=== PATIENT | male | born 1945 | race Caucasian/White ===

== ENCOUNTER → 2020-06-17 12:12 | Outpatient (BNVA) | payer BC, MEDICARE, SELFPAY | PROVIDERS: Family Provider Family Medicine; PCP Internal Medicine; Visit Provider Internal Medicine Cardiovascular Disease | DX: I48.0 Paroxysmal atrial fibrillation (principal); Z79.01 Long term (current) use of anticoagulants; N18.9 Chronic kidney disease, unspecified; R07.9 Chest pain, unspecified; I10 Essential (primary) hypertension | CPT/HCPCS: 80053; 84443; 85025 ==

== ENCOUNTER 2021-04-21 09:19 | Outpatient (CLI) | payer OTHER, SELFPAY ==
[2021-04-21 09:40] VITALS: BP 104/63; PULSE 95; RESP 16; TEMP 36.5; O2SAT 99
[2021-04-21 10:00] VITALS: BMI 18.3
[2021-04-21 10:04] VITALS: BP 117/67; PULSE 65; RESP 16; TEMP 36.8; O2SAT 98
[2021-04-21 11:01] VITALS: BP 119/68; PULSE 65; RESP 17; TEMP 36.5; O2SAT 98
--- NOTE | 2021-05-01 13:47 | DCPLANNER ---
energy efficiency finance manager had message that patient received the monoclonal antibody infusion. energy efficiency finance manager spoke with patient, he stated that before the infusion he felt lousy, his stomach hurt, he diarrhea, he had a slight fever, and a cough. Patient stated that after the infusion patient stated that he has good days and bad days. Patient stated that he is feeling much better, he is a little weak, and he states that he has no energy. Patient stated that over all he is feeling better.
== END 2021-04-21 09:20 | disposition home or self-care (01) ==
LOC: OPS 09:22
PROVIDERS: PCP Internal Medicine; Visit Provider Nurse Practitioner
DX: U07.1 COVID-19 (principal)
CPT/HCPCS: 96365

== ENCOUNTER → 2021-05-28 09:40 | Outpatient (BNVA) | payer OTHER, SELFPAY | PROVIDERS: PCP Internal Medicine; Visit Provider Internal Medicine Cardiovascular Disease | DX: Z01.812 Encounter for preprocedural laboratory examination (principal); Z20.822 Contact with and (suspected) exposure to COVID-19 | CPT/HCPCS: 80048; 85025; 85610; 87635 ==

== ENCOUNTER 2021-06-03 06:28 | Day surgery (SDC) | payer MEDICARE, SELFPAY ==
[2021-06-03] VITALS (12 sets, daily range): BP systolic 145–167; BP diastolic 70–78; PULSE 59–70; RESP 16–18; TEMP 36.2–36.9; O2SAT 97–100; BMI 18.3
--- NOTE | 2021-06-03 07:07 | W.PM.OPSUD ---
Surgery/Procedure H&P Update DATE OF PROCEDURE: June 03, 2021 DATE H&P PERFORMED: 05/25/21 H&P UPDATE INFORMATION: I have reviewed H&P completed within last 30 days, I have examined patient prior to procedure and No changes to prior documentation PREOP DIAGNOSIS: Pacemaker KAREN PRIMARY INDICATION FOR PROCEDURE: Same as above PLANNED PROCEDURE: Operation Date: 06/03/21 07:00 Proposed Procedures p Pacemaker Generator Change(Not Applicable) - Sapphire Julian MD PATIENT REASSESSED PRIOR TO SEDATION, WITH NO CHANGE NOTED: Yes PHYSICAL EXAM: alert, oriented x 3, clear to auscultation bilaterally, regular rate & rhythm and operative site marked AIRWAY EVAL/ANESTHESIA PLAN: normal airway, see other exam findings, ASA III, Monitored Anesthesia, Local Anesthesia, Risks, benefits & alternatives of sedation and/or procedure discussed and Patient agrees to continue as planned
--- NOTE | 2021-06-03 08:09 | PM.OP ---
Operative Report Date of procedure: June 03, 2021 Pre-op Diagnosis: Pacemaker KAREN Procedure: PROCEDURE: PACEMAKER REVISION PREOPERATIVE DIAGNOSIS: Pacemaker elective replacement indication. POSTOPERATIVE DIAGNOSIS: Pacemaker elective replacement indication. ESTIMATED BLOOD LOSS: Around less than 5 milliliters. COMPLICATIONS: None. BRIEF HISTORY: The patient is 76-year-old white male who had a permanent pacemaker implantation for symptomatic bradycardia/intermittent atrial fibrillation. The patient was found to have elective replacement indication, during routine office followup evaluation. For further management of patient's condition for the symptomatic bradycardia, the patient required a pacemaker revision. Patient required a dual-chamber pacemaker for symptom relief and the need for AV synchrony The procedure was explained to the patient and his family in detail with the risks and benefits. The risks of bleeding, hematoma, vascular injury, infection and other concomitant complications were explained in detail, which the patient understood well and consented to proceed. PROCEDURES PERFORMED: 1. Explantation of the old pacemaker generator. 2. Implantation of the new generator. The patient brought to the Cardiac Splitting Machine Tender. The left side of the neck and the subclavian area were cleaned and draped in a sterile fashion. 1% Xylocaine was used for local anesthetic agent. A 2 inch long incision was made just below the previous pacemaker scar. By sharp and blunt dissection, the pacemaker pocket was accessed. The old generator was delivered from the pocket. The generator was detached from the lead. The new Medtronic generator was attached to the lead. The pacemaker pocket was copiously irrigated with vancomycin solution. Complete hemostasis was achieved. The lead was positioned behind the generator and the generator was placed in an antibiotic sleeve (TYRX) and then attached to the pectoralis fascia by suturing with 0 Surgilon. Sponge counts were confirmed. The pacemaker pocket was closed in layers. Skin was approximated using 4-0 Vicryl. EXPLANTED DEVICE: Pacemaker Generator: Brand: Frankei ELLIS Model number: [id number]. Serial number: [id number]. Date of implant: 11/23/2011 IMPLANTED DEVICES: Ventricular Lead: Date of implantation: 11/23/2011 Model number: 5076/58 Serial number: [id number] Make: Medtronic. Atrial lead Date of implantation: 11/23/2011 Model number: 5076/52 Serial number: [id number] Make: Medtronic. Implanted Generator: Date of implantation : 06/03/2021 Brand: Brian XT DR MRI SureScan. Model number: [id number] Serial number: [id number] Make: Medtronic TYRX Lot# [id number] Ref# [id number] Stimulation Threshold: The ventricular sensing was 4.5 millivolts. Ventricular lead impedance was 437 ohms and the pacing threshold was 0.75 volts at 0.4 milliseconds. The atrial sensing was 2.6 millivolts. Atrial lead impedance was 380 ohms and the pacing threshold was 0.75 volts at 0.4 milliseconds. The pacemaker was set for DDDR mode with an upper rate of 130 and a lower rate of 60. Mode switch on A pressure dressing was applied over the pacemaker site. The patient was transferred back to medical floor in stable condition. Sponge counts were correct.
--- NOTE | 2021-06-03 08:40 | PC.NURSE ---
ADMIT NOTE UP VIA W/C FROM BIOLOGICAL SCIENCE TECHNICIAN FISH - PRESSURE DRESSING TO LEFT CHEST WALL C/D/I - FAMILY AT [facility] - S
[2021-06-03] MEDS: atorvastatin 40 mg Tablet PO (10:02)
[2021-06-03] MEDS: losartan 50 mg Tablet 100 MG PO (10:02)
[2021-06-03] MEDS: pantoprazole DR 40 mg Tablet PO (10:02)
--- NOTE | 2021-06-03 17:37 | PC.NURSE ---
Addendum entered by Lupe Samuel RN 06/03/21 17:45: PRESSURE DRESSING REMOVED PER DR CHU Original Note: DR KIMBERLEY CHU ON FLOOR - UPDATE GIVEN
--- NOTE | 2021-06-03 18:05 | PC.NURSE ---
SHIFT SUMMARY PT HAS RESTED THROUGHOUT SHIFT WITH IMMOBILIZER IN PLACE - WELL LEFT CHEST DRESSING C/D/I WITH NO REDNESS OR DRAINAGE NOTED - IV REMAINS PATENT TO LEFT ARM - VSS - CONTINUES TO DENY PAIN - NO CONCERNS VOICED - PLAN FOR DISCHARGE IN AM - PT AWARE
[2021-06-04] VITALS: BP 144/69; PULSE 62; RESP 18; TEMP 36.6; O2SAT 100
[2021-06-04 04:00] VITALS: BP 163/73; PULSE 60; RESP 16; TEMP 36.7; O2SAT 96
[2021-06-04 06:00] VITALS: PULSE 59
--- NOTE | 2021-06-04 06:00 | ECG_ITS ---
[facility] Test Date: 2021-06-04 Pat Name: Paul Caldwell Department: Room: 277 Gender: Male Strategic Marketing Associate: : [id number] Requested By: Sapphire Julian Order Number: [id number] Josh MD: Esther Robison M.D. Measurements Intervals [place] Rate: 63 P: 133 TN: 180 QRS: -76 QRSD: 185 T: 110 QT: 456 QTc: 468 Interpretive Statements ELECTRONIC ATRIAL PACEMAKER ELECTRONIC VENTRICULAR PACEMAKER ABNORMAL RHYTHM ECG No previous ECG available for comparison Electronically Signed On 06-05-2021 7:06:49 CDT by Esther Robison M.D. [id number]
--- NOTE | 2021-06-04 06:16 | PC.NURSE ---
Patient AAOx4, VSS, patient paced on telemetry, left arm in sling, no c/o pain. No new events over night, no needs at this time. WIll report and handoff to oncoming nurse at shift change.
[2021-06-04 08:07] VITALS: BP 161/71; PULSE 64; RESP 16; TEMP 36.8; O2SAT 99
[2021-06-04] MEDS: pantoprazole DR 40 mg Tablet PO (08:08)
[2021-06-04] MEDS: losartan 50 mg Tablet 100 MG PO (08:08)
[2021-06-04] MEDS: atorvastatin 40 mg Tablet PO (08:08)
[2021-06-04] MEDS: multivitamin therapeutic Tablet 1 TAB PO (08:09)
[2021-06-04 11:07] VITALS: BP 161/71; PULSE 64; RESP 16; TEMP 36.8; O2SAT 99
== END 2021-06-04 11:08 | disposition home or self-care (01) ==
LOC: CCL 06:33 → MEDSURG 08:16
PROVIDERS: PCP Internal Medicine; Visit Provider Internal Medicine Cardiovascular Disease
DX: Z45.010 Encounter for checking and testing of cardiac pacemaker pulse generator [battery] (principal); I10 Essential (primary) hypertension; E11.9 Type 2 diabetes mellitus without complications; E78.5 Hyperlipidemia, unspecified; Z82.49 Family history of ischemic heart disease and other diseases of the circulatory system; Z83.3 Family history of diabetes mellitus; K21.9 Gastro-esophageal reflux disease without esophagitis
CPT/HCPCS: 33213; 36415; 93005; C1769; C1786; J0690; J2250; J3010; J7030; J7050

== ENCOUNTER → 2021-11-24 09:27 | Outpatient (BNVA) | payer MEDICARE, SELFPAY | PROVIDERS: PCP Internal Medicine; Visit Provider Internal Medicine Cardiovascular Disease | DX: I48.0 Paroxysmal atrial fibrillation (principal); I12.9 Hypertensive chronic kidney disease with stage 1 through stage 4 chronic kidney disease, or unspecified chronic kidney disease; N18.9 Chronic kidney disease, unspecified | CPT/HCPCS: 99214 ==

== ENCOUNTER → 2021-12-18 09:02 | Outpatient (BNVA) | payer MEDICARE, SELFPAY | PROVIDERS: PCP Internal Medicine; Visit Provider Internal Medicine Cardiovascular Disease | DX: Z45.010 Encounter for checking and testing of cardiac pacemaker pulse generator [battery] (principal) | CPT/HCPCS: 93280 ==

== ENCOUNTER → 2022-04-09 09:14 | Outpatient (BNVA) | payer MEDICARE, SELFPAY | PROVIDERS: PCP Internal Medicine; Visit Provider Internal Medicine Cardiovascular Disease | DX: Z45.010 Encounter for checking and testing of cardiac pacemaker pulse generator [battery] (principal) | CPT/HCPCS: 93280 ==

== ENCOUNTER → 2022-05-25 10:15 | Outpatient (BNVA) | payer MEDICARE, SELFPAY | PROVIDERS: PCP Internal Medicine; Visit Provider Internal Medicine Cardiovascular Disease | DX: I48.0 Paroxysmal atrial fibrillation (principal); Z79.01 Long term (current) use of anticoagulants; Z95.0 Presence of cardiac pacemaker; I10 Essential (primary) hypertension; E11.65 Type 2 diabetes mellitus with hyperglycemia; E78.2 Mixed hyperlipidemia; Z87.891 Personal history of nicotine dependence | CPT/HCPCS: 99214 ==

== ENCOUNTER → 2022-07-23 09:01 | Outpatient (BNVA) | payer MEDICARE, SELFPAY | PROVIDERS: PCP Internal Medicine; Visit Provider Internal Medicine Cardiovascular Disease | DX: Z45.010 Encounter for checking and testing of cardiac pacemaker pulse generator [battery] (principal) | CPT/HCPCS: 93280 ==

== ENCOUNTER → 2023-01-20 09:24 | Outpatient (BNVA) | payer MEDICARE, SELFPAY | PROVIDERS: PCP Internal Medicine; Referring Provider Internal Medicine; Visit Provider Dermatology | DX: L82.1 Other seborrheic keratosis (principal); L57.0 Actinic keratosis; L81.4 Other melanin hyperpigmentation | CPT/HCPCS: 11102; 11103; 17000; 17003; 99203 ==

== ENCOUNTER → 2023-03-18 08:52 | Outpatient (BNVA) | payer MEDICARE, SELFPAY | PROVIDERS: PCP Internal Medicine; Referring Provider Internal Medicine; Visit Provider Specialist | DX: G30.9 Alzheimer's disease, unspecified (principal); F02.80 Dementia in other diseases classified elsewhere, unspecified severity, without behavioral disturbance, psychotic disturbance, mood disturbance, and anxiety | CPT/HCPCS: 0346U; 36415; 82607; 82746; 96116; 99205 ==

== ENCOUNTER → 2023-03-29 08:27 | Outpatient (BNVA) | payer MEDICARE, SELFPAY | PROVIDERS: PCP Internal Medicine; Visit Provider Specialist | DX: G30.9 Alzheimer's disease, unspecified (principal); F02.80 Dementia in other diseases classified elsewhere, unspecified severity, without behavioral disturbance, psychotic disturbance, mood disturbance, and anxiety | CPT/HCPCS: 99214 ==

== ENCOUNTER → 2023-06-17 08:50 | Outpatient (BNVA) | payer MEDICARE, SELFPAY | PROVIDERS: PCP Internal Medicine; Visit Provider Specialist | DX: G30.9 Alzheimer's disease, unspecified (principal); F02.80 Dementia in other diseases classified elsewhere, unspecified severity, without behavioral disturbance, psychotic disturbance, mood disturbance, and anxiety | CPT/HCPCS: 99213 ==

== ENCOUNTER → 2023-10-05 12:34 | Outpatient (BNVA) | payer MEDICARE, SELFPAY | PROVIDERS: PCP Internal Medicine; Visit Provider Specialist | DX: R41.3 Other amnesia (principal); R29.90 Unspecified symptoms and signs involving the nervous system; G30.9 Alzheimer's disease, unspecified; F02.80 Dementia in other diseases classified elsewhere, unspecified severity, without behavioral disturbance, psychotic disturbance, mood disturbance, and anxiety | CPT/HCPCS: 99213 ==

== ENCOUNTER → 2023-11-18 09:30 | Outpatient (BNVA) | payer MEDICARE, SELFPAY | PROVIDERS: PCP Internal Medicine; Visit Provider Internal Medicine Cardiovascular Disease | DX: Z53.9 Procedure and treatment not carried out, unspecified reason (principal); E11.65 Type 2 diabetes mellitus with hyperglycemia; L84 Corns and callosities | CPT/HCPCS: 11055; 93280; 99203 ==

== ENCOUNTER → 2024-01-17 14:18 | Outpatient (BNVA) | payer MEDICARE, SELFPAY | PROVIDERS: PCP Internal Medicine; Visit Provider Podiatrist Foot & Ankle Surgery | DX: L84 Corns and callosities (principal); E11.65 Type 2 diabetes mellitus with hyperglycemia | CPT/HCPCS: 99213 ==

== ENCOUNTER → 2024-03-01 12:48 | Outpatient (BNVA) | payer MEDICARE, SELFPAY | PROVIDERS: PCP Internal Medicine; Visit Provider Podiatrist Foot & Ankle Surgery | DX: L84 Corns and callosities (principal); E11.65 Type 2 diabetes mellitus with hyperglycemia | CPT/HCPCS: 11055; 99213 ==

== ENCOUNTER → 2024-05-10 12:59 | Outpatient (BNVA) | payer MEDICARE, SELFPAY | PROVIDERS: PCP Internal Medicine; Visit Provider Podiatrist Foot & Ankle Surgery | DX: E11.8 Type 2 diabetes mellitus with unspecified complications (principal); L84 Corns and callosities; E11.65 Type 2 diabetes mellitus with hyperglycemia | CPT/HCPCS: 99213 ==

== ENCOUNTER → 2024-09-07 10:35 | Outpatient (BNVA) | payer MEDICARE, SELFPAY | PROVIDERS: PCP Internal Medicine; Visit Provider Internal Medicine Cardiovascular Disease | DX: Z45.018 Encounter for adjustment and management of other part of cardiac pacemaker (principal) | CPT/HCPCS: 93280 ==

== ENCOUNTER → 2024-12-12 12:13 | Outpatient (BNVA) | payer MEDICARE, SELFPAY | PROVIDERS: PCP Internal Medicine; Visit Provider Family Medicine | DX: I10 Essential (primary) hypertension (principal); E11.65 Type 2 diabetes mellitus with hyperglycemia; I48.0 Paroxysmal atrial fibrillation | CPT/HCPCS: 80053; 80061; 83036; 85025 ==

== ENCOUNTER → 2025-04-15 12:02 | Outpatient (BNVA) | payer MEDICARE, SELFPAY | PROVIDERS: PCP Family Medicine; Visit Provider Family Medicine | DX: E11.65 Type 2 diabetes mellitus with hyperglycemia (principal) | CPT/HCPCS: 83036 ==

== ENCOUNTER → 2025-05-07 10:19 | Outpatient (BNVA) | payer MEDICARE, SELFPAY | PROVIDERS: PCP Family Medicine; Visit Provider Internal Medicine Cardiovascular Disease | DX: R07.9 Chest pain, unspecified (principal); I48.0 Paroxysmal atrial fibrillation; Z95.0 Presence of cardiac pacemaker; I10 Essential (primary) hypertension; E11.65 Type 2 diabetes mellitus with hyperglycemia; E78.2 Mixed hyperlipidemia; Z87.891 Personal history of nicotine dependence; Z79.01 Long term (current) use of anticoagulants | CPT/HCPCS: 99214 ==

== ENCOUNTER → 2025-06-10 09:22 | Outpatient (BNVA) | payer MEDICARE, SELFPAY | PROVIDERS: PCP Family Medicine; Visit Provider Family Medicine | DX: I10 Essential (primary) hypertension (principal); E11.65 Type 2 diabetes mellitus with hyperglycemia; E78.2 Mixed hyperlipidemia | CPT/HCPCS: 85025 ==

== ENCOUNTER → 2025-07-24 13:24 | Outpatient (BNVA) | payer MEDICARE, SELFPAY | PROVIDERS: PCP Family Medicine; Visit Provider Internal Medicine Cardiovascular Disease | DX: Z45.018 Encounter for adjustment and management of other part of cardiac pacemaker (principal) | CPT/HCPCS: 93296 ==

== ENCOUNTER → 2025-08-15 09:14 | Outpatient (BNVA) | payer MEDICARE, SELFPAY | PROVIDERS: PCP Family Medicine; Visit Provider Family Medicine | DX: I10 Essential (primary) hypertension (principal); E11.65 Type 2 diabetes mellitus with hyperglycemia | CPT/HCPCS: 80053; 83036; 85025 ==